=== PATIENT | male | born 1980 | race Hispanic/Latino ===

== ENCOUNTER → 2018-09-20 | Outpatient (CLI) | payer OTHER ==
[~2018-09-20] MED LIST: GADODIAMIDE 10 MMOL/20 ML ML IV ONE
== END | disposition home or self-care (01) ==
LOC: RAH 13:34
PROVIDERS: ATTEND Orthopaedic Surgery
DX: S46.812A Strain of other muscles, fascia and tendons at shoulder and upper arm level, left arm, initial encounter (principal); M19.012 Primary osteoarthritis, left shoulder; X58.XXXA Exposure to other specified factors, initial encounter; Y93.89 Activity, other specified; Y92.89 Other specified places as the place of occurrence of the external cause; Y99.8 Other external cause status
CPT/HCPCS: 73223; A9579

== ENCOUNTER 2018-12-22 10:00 | Day surgery (SDC) | payer BC ==
[2018-12-20 16:15] VITALS: BP 115/64
[2018-12-22] VITALS (15 sets, daily range): BP systolic 96–134; BP diastolic 52–79
[~2018-12-22] VITALS: Ht 172.7 cm; Wt 81.5 kg
[2018-12-22] MEDS ORDERED: LACTATED RINGERS 1000ML 1,000 ML IV ONE (10:24)
[2018-12-22] MEDS: LEVOFLOXACIN 500 MG/D5W 100 ML 100 ML IV PRN ×2 (10:57→13:45)
[2018-12-22] MEDS ORDERED: MIDAZOLAM HCL 1 MG/ML 2ML VIAL ONE (13:39)
[2018-12-22] MEDS ORDERED: PROPOFOL 10 MG/ML 20ML VIAL IV ONE (13:39)
[2018-12-22] MEDS ORDERED: BUPIVACAINE/PF 0.25% 30ML VIAL IJ ONE (13:41)
[2018-12-22] MEDS ORDERED: FENTANYL CITRATE PF 50 MCG/1 ML 2ML VIAL ONE ×2 (13:42)
[2018-12-22] MEDS ORDERED: LIDOCAINE HCL 1% 20 ML VIAL ONE (13:42)
[2018-12-22] MEDS ORDERED: GLYCOPYRROLATE 1 MG/5 ML SYRINGE ONE (13:54)
[2018-12-22] MEDS ORDERED: BACITRACIN 28.4 GM OINT TP ONE (14:10)
[2018-12-22] MEDS ORDERED: KETOROLAC TROMETHAMINE 30MG/ML ONE (15:19)
--- NOTE | 2018-12-22 16:05 | NUR ---
ASSESSMENT RECEIVED PT FROM Mega FLORENTINO RN. PT [id number]. DRSG TO SCROTUM CLEAN DRY AND INTACT. NO BLEEDING NOTED. SCROTAL SUPPORT IN PLACE. GIRLFRIEND AT BEDSIDE
--- NOTE | 2018-12-22 16:45 | NUR ---
DISCHARGE ORAL AND WRITTEN DISCHARGE INSTRUCTIONS GIVEN TO PT AND PTS GIRLFRIEND. INSTRUCTED ON IMPORTANCE OF FOLLOWING DR. PERERA POST OP INSTRUCTIONS. PRESCRIPTION GIVEN TO PTS GIRLFRIEND. SCROTAL SUPPORT IN PLACE. NO OTHER QUESTIONS AT THIS TIME.
== END 2018-12-22 17:00 | disposition home or self-care (01) ==
LOC: DAH 10:00
PROVIDERS: ATTEND Urology
DX: Z30.2 Encounter for sterilization (principal); N47.1 Phimosis; Z98.890 Other specified postprocedural states; Z79.899 Other long term (current) drug therapy; Z88.8 Allergy status to other drugs, medicaments and biological substances
CPT/HCPCS: 54150; 55250; 88302; 88304; J1885; J1956; J2250; J2704; J3010 ×2; J3490 ×2; J7030; J7120

== ENCOUNTER 2019-04-13 10:09 | Day surgery (SDC) | payer OTHER ==
[2019-04-12 14:15] VITALS: BP 127/68
[2019-04-12 14:29] LABS: BASOPHILS % (AUTO) 0.4 % (0.0-5.0); EOSINOPHILS % (AUTO) 0.9 % (0.0-8.0); HEMATOCRIT 40.2 % (42-54); LYMPHOCYTES % (AUTO) 34.2 % (21.0-51.0); MEAN CORPUSCULAR HEMOGLOBIN 28.6 pg (27.0-33.0); MEAN CORPUSCULAR HGB CONC 33.9 g/dL (32.0-36.0); MEAN CORPUSCULAR VOLUME 84.3 fL (79-99); MONOCYTES % (AUTO) 7.3 % (3.0-13.0); NEUTROPHILS % (AUTO) 57.2 % (40.0-77.0); PLATELET COUNT (AUTO) 235 K/uL (130-400); RED BLOOD CELL COUNT(AUTO) 4.77 MIL/uL (4.50-6.20); RED CELL DISTRIBUTION WIDTH 13.7 % (11.0-15.5); WHITE BLOOD COUNT (AUTO) 6.3 K/uL (4.8-10.8)
[2019-04-12 14:37] LABS: CREATININE 1.3 mg/dL (0.5-1.5); POTASSIUM 3.9 mmol/L (3.5-5.1)
[2019-04-13] VITALS (18 sets, daily range): BP systolic 109–121; BP diastolic 60–76
[~2019-04-13] VITALS: Ht 174 cm; Wt 79.3 kg
[~2019-04-13 10:09] MED LIST changes: +CLINDAMYCIN IN 0.9 % SOD CHLOR 50 ML IV PRN; -GADODIAMIDE 10 MMOL/20 ML ML IV ONE
[2019-04-13] MEDS ORDERED: LACTATED RINGERS 1000ML 1,000 ML IV ONE (11:20)
[2019-04-13] MEDS ORDERED: CLINDAMYCIN 900 MG/D5% WATER 50 ML IV ONE (11:20)
[2019-04-13] MEDS ORDERED: ACETAMINOPHEN EXTRA STRENGTH 500 MG TABLET ONE (12:28)
[2019-04-13] MEDS ORDERED: EPINEPHRINE 1 MG/ML 30ML VIAL IJ ONE (15:31)
[2019-04-13] MEDS ORDERED: LIDOCAINE HCL-MPF 1% 5ML AMP IJ ONE (15:49)
[2019-04-13] MEDS ORDERED: PROPOFOL 10 MG/ML 20ML VIAL IV ONE (15:50)
[2019-04-13] MEDS ORDERED: MIDAZOLAM HCL 1 MG/ML 2ML VIAL ONE ×2 (15:50→15:51)
[2019-04-13] MEDS ORDERED: ROCURONIUM 10MG/1ML SYR 10 MG/ML ML ONE (15:50)
[2019-04-13] MEDS ORDERED: ROPIVACAINE 0.5% 5MG/ML 30ML IJ ONE (15:55)
[2019-04-13] MEDS ORDERED: FENTANYL CITRATE PF 50 MCG/1 ML 2ML VIAL ONE (17:31)
[2019-04-13] MEDS ORDERED: NEOSTIGMINE 5MG/5ML SYR IV ONE (17:41)
[2019-04-13] MEDS ORDERED: GLYCOPYRROLATE 1 MG/5 ML SYRINGE ONE (17:41)
[2019-04-13] MEDS ORDERED: KETOROLAC TROMETHAMINE 30MG/ML ONE (17:42)
[2019-04-13] MEDS ORDERED: HYDR-4457 PO (17:56)
[2019-04-13] MEDS ORDERED: CLIN300C3 PO (17:56)
[2019-04-13] MEDS ORDERED: NAPR-1192 PO (17:56)
[2019-04-13] MEDS ORDERED: ONDANSETRON HCL 4 MG/2 ML VIAL ONE (19:32)
[2019-04-13] MEDS ORDERED: HYDROCODONE/ACETAMINOPHEN 10/325 MG TAB ONE (20:03)
--- NOTE | 2019-04-13 20:40 | NUR ---
PT DISCHARGED HOME, TOLERATING FLUIDS, NAUSEA HAS RESOLVED, PAIN HAS DIMINISHED, AMBULATING WELL WITH STANDY-BY ASSISTANCE. DRESSING TO LEFT SHOULDER REMAINS DRY, CLEAN, AND INTACT. PRESCRIPTIONS GIVEN TO GIRLFRIEND. PT AND GIRLFRIEND DENY ANY FURTHER QUESTIONS.
[2019-04-13] MEDS ORDERED: HYDROCODONE/ACETAMINOPHEN 10/325 MG TAB PO ONE (21:45)
== END 2019-04-13 20:40 | disposition home or self-care (01) ==
LOC: DAH 10:09
PROVIDERS: ATTEND Orthopaedic Surgery
DX: S46.812A Strain of other muscles, fascia and tendons at shoulder and upper arm level, left arm, initial encounter (principal); M75.42 Impingement syndrome of left shoulder; M19.012 Primary osteoarthritis, left shoulder; Z79.899 Other long term (current) drug therapy; Z98.890 Other specified postprocedural states; Z88.8 Allergy status to other drugs, medicaments and biological substances; X58.XXXA Exposure to other specified factors, initial encounter; Y93.89 Activity, other specified; Y92.89 Other specified places as the place of occurrence of the external cause; Y99.8 Other external cause status
CPT/HCPCS: 29824; 29826; 36415; 64415; 80048; 85025; A4565; A4600; A4649 ×3; A4930; A6204; J0171; J1885; J2250 ×2; J2405; J2704; J2710; J2795; J3010; J3490 ×3; J7030; J7120

== ENCOUNTER → 2023-11-03 | Outpatient (CLI) | payer BC ==
[~2023-11-03] MED LIST changes: +CLIN300C3 PO; -CLINDAMYCIN IN 0.9 % SOD CHLOR 50 ML IV PRN; +HYDR-4457 PO; +NAPR-1192 PO
[2023-11-03 13:09] LABS: ALBUMIN 3.9 g/dL (3.5-5.0); BILIRUBIN,TOTAL 0.3 mg/dL (0.2-1.0); CREATININE 1.1 mg/dL (0.5-1.5); TOTAL PROTEIN, SERUM 7.7 g/dL (6.0-8.3)
== END | disposition home or self-care (01) ==
LOC: LAB 10:54
PROVIDERS: ATTEND Student in an Organized Health Care Education/Training Program
DX: R07.9 Chest pain, unspecified (principal)
CPT/HCPCS: 36415; 80053

== ENCOUNTER → 2023-12-05 | Outpatient (CLI) | payer BC ==
[~2023-12-05] MED LIST changes: +IOHEXOL 350 MG/ML 100ML INFUS..BTL IV ONE
== END | disposition home or self-care (01) ==
LOC: RAH 09:40
PROVIDERS: ATTEND Student in an Organized Health Care Education/Training Program
DX: M47.815 Spondylosis without myelopathy or radiculopathy, thoracolumbar region (principal); R07.9 Chest pain, unspecified
CPT/HCPCS: 75574; Q9967

== ENCOUNTER → 2024-10-01 | Outpatient (CLI) | payer BC ==
[~2024-10-01] MED LIST changes: -IOHEXOL 350 MG/ML 100ML INFUS..BTL IV ONE
== END | disposition home or self-care (01) ==
LOC: SHCH 11:27
PROVIDERS: ATTEND Student in an Organized Health Care Education/Training Program
DX: R07.9 Chest pain, unspecified (principal)
CPT/HCPCS: 93306